=== PATIENT | male | born 1985 | race Caucasian/White ===

== ENCOUNTER 2020-03-10 21:46 | Emergency (ER) | payer MEDICAID ==
[~2020-03-10] VITALS: Ht 170.2 cm; Wt 93.4 kg
[2020-03-10 21:48] VITALS: BP 109/72
--- NOTE | 2020-03-10 21:50 | NUR ---
TO LOBBY A/W BRII ALANIS C/O SOB, CHEST PAIN, S/P TAKING METH AN HOUR AGO
--- NOTE | 2020-03-11 01:10 | NUR ---
PT CALLED IN LOBBY AND OUTSIDE, NO ANSWER
--- NOTE | 2020-03-11 01:20 | NUR ---
PT CALLED IN LOBBY AND OUTSIDE, NO ANSWER
--- NOTE | 2020-03-11 01:30 | NUR ---
PATIENT LEFT WITHOUT BEING SEEN BY DR. WALTERS. NO FURTHER CARE PROVIDED FOR PATIENT.
== END 2020-03-11 01:30 | disposition left against medical advice (07) ==
LOC: MED 21:46
DX: R06.02 Shortness of breath (principal); F15.90 Other stimulant use, unspecified, uncomplicated; Z53.21 Procedure and treatment not carried out due to patient leaving prior to being seen by health care provider
CPT/HCPCS: 93005; 99281